=== PATIENT | female | born 1980 | race Caucasian/White ===

== ENCOUNTER → 2024-03-08 | Outpatient (CLI) | payer OTHER, SELFPAY ==
--- NOTE | 2024-03-08 13:53 | NEURO_ITS ---
NCS and/or EMG Patient Report Ordering Doctor: Santy Barton DATE OF SERVICE: 03/08/24 Charity presents with complaints of low back pain radiating into the lower limbs, mainly on the right side. She has had 2 spine surgeries. Electrodiagnostic findings: Right peroneal motor nerve demonstrates normal distal latency, amplitude and conduction velocity. Left peroneal motor nerve demonstrates normal distal latency, amplitude and conduction velocity. Tibial motor responses within normal limits bilaterally. Normal peroneal and tibial F?waves. Borderline prolonged H?reflux bilaterally. Mildly prolonged sural latency bilaterally. Needle EMG testing was performed in the lower limbs. 1+ fibrillations were noted in the right tibialis anterior, right peroneus longus and right lower lumbar paraspinals. Polyphasic motor units noted in the right tibialis anterior and right peroneus longus. Electrodiagnostic impression: This is an abnormal study. 1. Electrodiagnostic findings are consistent with acute on chronic right L5 radiculopathy. 2 there is no electrodiagnostic evidence for peripheral polyneuropathy. Multi Select Codes Neurology Neurology Interp Codes: 02901-55 Musc test done w/n test comp (interp) (2) and 9 5911-26 Nrv cndj test 9-10 studies (interp)
== END | disposition home or self-care (01) ==
LOC: PSN 12:06
PROVIDERS: PCP Family Medicine; Referring Provider Family Medicine; Visit Provider Family Medicine
DX: M51.26 Other intervertebral disc displacement, lumbar region (principal); S39.012A Strain of muscle, fascia and tendon of lower back, initial encounter
CPT/HCPCS: 95886; 95911

== ENCOUNTER 2024-04-07 12:00 | Outpatient (RCR) | payer OTHER, BC, SELFPAY ==
--- NOTE | 2023-09-15 11:42 | HP.PTEVAL_ITS ---
Patient's Visit Information Visit Information Visit Information: CHARITO RATLIFF is a 43 year old F referred to Physical Therapy by Dr. 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 Date of Evaluation: 09/14/23 Physical Therapist: Moris Serrano DPT Visit Plan Frequency: 2x /Week Duration: 4 Weeks Plan: AQUATIC THERAPY: Address core/TA contraction, posture, lumbar ROM, walking, hip strengthening LAND THERAPY: Pt to transition to land therapy once reached maximum potential with aquatic therapy and demonstrates improved pain with motion. From there, address walking with LRD, hip strengthening, neutral spine strengthening/endurance, and STM to address any scar tissue adhesions, pain, or limitations in ROM. Subjective Subjective: Pt presents to PT s/p two back surgeries. First was in October 2022 and second was 08/17/23 as a WC case, following a back injury that occured while working. 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 Pt was helping lift an adult at work out of his wheelchair and heard a pop in her back in spring. Following the second surgery, pt reports an improvement in N/T in LLE and less sensitivity in her legs. Pt presents with rollator and back brace upon PT evaluation. Pt reports some feeling of fullness in low back and R leg. Pt has stairs to get up to her second floor bathroom and makes sure someone is supervising her in case she loses her balance. Pt denies any falls. Pt has lifting restrictions up to 10#, expected to increase at next f/u. Currently, lifting a gallon of milk or her granddaughter feels like a pulling in her low back. Surgeon set tentative RTW date in November, but pt unsure if this will be a realistic timeline. Pt has been walking around her house without rollator, is able to do laundry, stand for approx 10 min while doing dishes, and get herself dressed. Pt reports pain gets up to 8/10 at worst and best 5/10, improved with gentle movement and pain medications. Goals: be able to clean house (vacuum, mop...), be able to stand for 1+ hours, and reduce pain. Pt denies fever, incontinence, or fear of water and is appropriate for aquatic therapy. Pain Back: Pain Intensity (Out of 10): 7 Pain Intensity Range: 5 and 8 Objective Objective: ROM: lumbar ROM limited in all direction, standing flexion and R LSB most painful with wearing brace, seated without brace felt better MMT: L - hip flex 3/5, knee ext 3+/5, knee flex 3/5, ankle DF 4/5, ankle PF 4/5 R - hip flex 3/5, knee ext 3+/5, knee flex 3/5, ankle DF 3+/5, ankle PF 3+/5 PALPATION: some tenderness near incision but healing well, tightness in R HS, tightness and muscle guarding in low back GAIT: slow, increased trunk stiffness and using rollator for UE support OBSERVATIONS: Pt frequently clenched jaw during lumbar ROM d/t apprehension with movement, good weight shifting with UE support STAIRS: need to test, pt performing at home with close supervision, gets tired easily Pt would like to be back to work by November, PT and SPT educated pt on slowly introducing ROM and stretching within pain-free range and energy conservation techniques to help with pain, especially at the end of the day. Pt apprehensive to move in fear of more damage or pain, but has been attempting to improve level of activity and independence with ADLs. Has difficulty maintaining one position for too long, both seated and standing and feels better with walking or swaying. Moris Serrano DPT had direct supervision with SPT for this evaluation Balance/Special Test Scores Oswestry Low Back Score: 31 Goals Goal 1:: STG: Pt will demonstrate symmetrical LE strength with <5/10 pain at worst Goal Time Frame: 4-6 Weeks Goal 2:: STG: Pt will be able to stand for 30+ minutes with <6/10 ppain Goal Time Frame: 4-6 Weeks Goal 3:: LTG: Pt will demonstrate <4/10 pain and reciprocal pattern when navigating stairs at home Goal Time Frame: 8-12 Weeks Goal 4:: LTG: Pt will be able to resume sexual activity with <3/10 pain Goal Time Frame: 8-12 Weeks Goal 5:: LTG: Pt will be able to tolerate cleaning her house with <4/10 pain and no AD Goal Time Frame: 8-12 Weeks Goal 6:: LTG: Pt will demonstrate the ability to amb. 300+ feet with no AD and improved gait mechanics Goal Time Frame: 8-12 Weeks Rehabilitation Potential Physical Therapy Diagnosis: Pt presents to PT with back pain, weakness in back/hips/LEs, and abnormal gait d/t back surgery on 08/17/23. Pt would benefit from skilled PT services, beginning with aquatic and ending with land, to address strength, ROM, and tolerance to ADLs including caring for her son, navigating within her home, and RTW. Rehabilitation Potential: Fair Anticipated Interventions Patient/Client Instruction: Educate patient on: Plan of Care and Benefits of Fitness Program For the Purpose of:: To decrease pain, To increase ROM, To improve muscle performance and motor function, To improve ability to perform ADL's, To increase tolerance to activity/condition/position, To improve performance and independence with ADL's, To decrease level of supervision to perform tasks, To improve ability of physical actions for home/community/work/leisure, To improve gait and locomotor functions, To improve health of tissue, To decrease soft tissue restriction, To increase flexibility/ROM, To improve endurance, To improve balance, To assume or resume ADL's, To reduce risk of recurrence, To improve safety, To improve health and function, To improve self management, To improve ability to perform tasks related to life management and To improve tolerance to ADL's Therapeutic Exercise to Include: Strength training, Endurance training, Balance training, Body mechanics, Postural training, Flexibilty training, Gait and locomotor training, Neuromotor development, Biofeedback, In an aquatic setting, Passive ROM, Active ROM and Victorina Exercises For the Purpose of:: To decrease pain, To increase ROM, To improve muscle performance and motor function, To improve ability to perform ADL's, To improve ability of physical actions for home/community/work/leisure, To improve gait and locomotor functions, To decrease soft tissue restriction, To increase flexibility/ROM, To improve endurance, To improve balance, To assume or resume ADL's, To improve safety, To improve health and function, To improve self management, To improve ability to perform tasks related to life management and To improve tolerance to ADL's Functional Training to Include: ADL Training, Functional work training and Gait training For the Purpose of:: To improve ability of physical actions for home/community/work/leisure, To improve gait and locomotor functions, To assume or resume ADL's, To reduce risk of recurrence, To improve health and function, To prevent re-injury, To improve ability to perform tasks related to life management and To improve tolerance to ADL's Manual Therapy Techniques to Include: Scar massage, Mobilization, Passive ROM and Soft tissue mobilization For the Purpose of:: To decrease pain, To decrease swelling/inflammation, To improve health of tissue, To decrease soft tissue restriction, To increase flexibility/ROM, To improve ability to perform tasks related to life management and To improve tolerance to ADL's Assistive Devices: Cane For the Purpose of:: To improve endurance, To improve balance, To improve safety with gait, To improve safety, To improve self management and To improve ability to perform tasks related to life management TENS: Yes Cryotherapy (ice pack, ice massage): Yes Thermo therapy (hot pack): Yes Ultrasound (thermal/non thermal): Yes For the Purpose of:: To decrease pain, To decrease swelling/inflammation, To improve nutrient delivery to tissue, To improve health of tissue, To decrease soft tissue restriction and To improve ability to perform tasks related to life management Text: Thank you for the opportunity to evaluate your patient. For Medicare and Medicare HMO plans, please review the plan of care and approve it. It will need to be FAXED BACK to us at [phone] for Medicare purposes. For Medicare only, by signing this I certify the plan of care. Please let me know if there are questions or concerns regarding this plan of care. Physician Signature: D ate:
--- NOTE | 2023-10-25 09:29 | HP.PTREVAL ---
Re-Evaluation Intro: Dr. Santy Barton MD, It has been my pleasure to treat CHARITO RATLIFF over the last 8 visits for Intervertebral disc displacement & strain of low back (s/p discectomy). Please see the progress note below for an update on the physical therapy plan of care! Subjective Subjective: Pt saw the surgeon on 10/10 and has another follow up on 12/12. Pt and the surgeon agree that aquatic therapy should continue, reporting that LE strength has improved. Pt is able to stand for 10 minutes before needing a break. Vacuuming and cleaning her house is fatiguing. Objective Objective/Function: ROM: BLE WNL, mild tightness L HS, still wearing brace to help protect back, did not test full ROM d/t sx precautions and pain MMT: L - hip flex (seated) 4+/5, knee ext 4/5, knee flex 4-/5, DF 4/5, PF 4/5 R - hip flex (seated) 3/5, knee ext 4-/5, knee flex 4-/5, DF 4/5, PF 4/5 GAIT: trunk muscle guarding, good upright posture, >200ft with rollator Pt demo's improved LE strength, tolerance to standing and walking, and posture. Pt would continue to benefit from skilled PT services to further strengthen core and LEs to help improve safety, foster healthy habits, and facilitate neuromuscular re-education of movement while addressing pain. Pt reports good benefit from aquatic therapy and she continues to be appropriate for aquatic therapy d/t pain with land ex and increased ease of movement when in the pool. Educated pt on how to begin implementing a walking program and how to appropriately increase activity as she tolerates. Plan Plan Plan: Awaiting new C9 for further PT approval. AQUATIC THERAPY: Address core/TA contraction, posture, lumbar ROM, walking, hip strengthening LAND THERAPY: Pt to transition to land therapy once reached maximum potential with aquatic therapy and demonstrates improved pain with motion. From there, address walking with LRD, hip strengthening, neutral spine strengthening/endurance, and STM to address any scar tissue adhesions, pain, or limitations in ROM. Balance/Gait/Functional tests Balance/Special Test Scores Oswestry Low Back Score: 31 Goals Goals Goal 1:: STG: Pt will demonstrate symmetrical LE strength with <5/10 pain at worst Goal Time Frame: 4-6 Weeks Goal Progress: Progressing Goal 2:: STG: Pt will be able to stand for 30+ minutes with <6/10 ppain Goal Time Frame: 4-6 Weeks Goal Progress: Progressing Goal 3:: LTG: Pt will demonstrate <4/10 pain and reciprocal pattern when navigating stairs at home Goal Time Frame: 8-12 Weeks Goal Progress: Progressing Goal 4:: LTG: Pt will be able to resume sexual activity with <3/10 pain Goal Time Frame: 8-12 Weeks Goal Progress: Progressing Goal 5:: LTG: Pt will be able to tolerate cleaning her house with <4/10 pain and no AD Goal Time Frame: 8-12 Weeks Goal Progress: Progressing Goal 6:: LTG: Pt will demonstrate the ability to amb. 300+ feet with no AD and improved gait mechanics Goal Time Frame: 8-12 Weeks Goal Progress: Progressing Anticipated Interventions Anticipated Interventions Patient/Client Instruction: Educate patient on: Plan of Care and Benefits of Fitness Program For the Purpose of:: To decrease pain, To increase ROM, To improve muscle performance and motor function, To improve ability to perform ADL's, To increase tolerance to activity/condition/position, To improve performance and independence with ADL's, To decrease level of supervision to perform tasks, To improve ability of physical actions for home/community/work/leisure, To improve gait and locomotor functions, To improve health of tissue, To decrease soft tissue restriction, To increase flexibility/ROM, To improve endurance, To improve balance, To assume or resume ADL's, To reduce risk of recurrence, To improve safety, To improve health and function, To improve self management, To improve ability to perform tasks related to life management and To improve tolerance to ADL's Therapeutic Exercise to Include: Strength training, Endurance training, Balance training, Body mechanics, Postural training, Flexibilty training, Gait and locomotor training, Neuromotor development, Biofeedback, In an aquatic setting, Passive ROM, Active ROM and Victorina Exercises For the Purpose of:: To decrease pain, To increase ROM, To improve muscle performance and motor function, To improve ability to perform ADL's, To improve ability of physical actions for home/community/work/leisure, To improve gait and locomotor functions, To decrease soft tissue restriction, To increase flexibility/ROM, To improve endurance, To improve balance, To assume or resume ADL's, To improve safety, To improve health and function, To improve self management, To improve ability to perform tasks related to life management and To improve tolerance to ADL's Functional Training to Include: ADL Training, Functional work training and Gait training For the Purpose of:: To improve ability of physical actions for home/community/work/leisure, To improve gait and locomotor functions, To assume or resume ADL's, To reduce risk of recurrence, To improve health and function, To prevent re-injury, To improve ability to perform tasks related to life management and To improve tolerance to ADL's Manual Therapy Techniques to Include: Scar massage, Mobilization, Passive ROM and Soft tissue mobilization For the Purpose of:: To decrease pain, To decrease swelling/inflammation, To improve health of tissue, To decrease soft tissue restriction, To increase flexibility/ROM, To improve ability to perform tasks related to life management and To improve tolerance to ADL's Assistive Devices: Cane For the Purpose of:: To improve endurance, To improve balance, To improve safety with gait, To improve safety, To improve self management and To improve ability to perform tasks related to life management TENS: Yes Cryotherapy (ice pack, ice massage): Yes Thermo therapy (hot pack): Yes Ultrasound (thermal/non thermal): Yes For the Purpose of:: To decrease pain, To decrease swelling/inflammation, To improve nutrient delivery to tissue, To improve health of tissue, To decrease soft tissue restriction and To improve ability to perform tasks related to life management Re-Evaluation Ending Re-evaluation ending: Please do not hesitate to contact me at [phone] by phone or if you have questions or concerns regarding this new plan of care! Sincerely, Moris Serrano DPT
--- NOTE | 2024-01-20 16:15 | HP.PTREVAL_ITS ---
Re-Evaluation Intro: Dr. Santy Barton MD, It has been my pleasure to treat CHARITO RATLIFF over the last 12 visits for Intervertebral disc displacement & strain of low back (s/p discectomy). Please see the progress note below for an update on the physical therapy plan of care! Subjective Subjective: Pt. is here today for her assessment of symptoms and progression. Pt. reports seeing physician whom she reports he was concerned about her L side. She reports some hyper sensitivity on the R LE as well. Pt. also reports a lot of R LE cramping. Pt. is no longer taking Objective Objective/Function: MMT: RLE: knee ext 9.1#, flexion 10.3#, hip: flexion 6.6#; LLE: knee Ext 17.9#, flexion 18.7#, hip flexion 19.4#. GAIT: Pt. ambulated 350' with out Ad. She did have increased lateral trunk sway, but not [place]. STAIRS: Pt. was able to complete with step to pattern with use of 1 HR on R side to ascend. Pt. continues to have increased pain in B LEs, hips and back. Pt. was able to ambulate much better today with out AD. She has decreased tempo increased rigidity with gait, but able to complete well. Pt. had not been here in a ~7 weeks. I talked to her about consistency with completing mobility/exercises to progress. Pt. reports being sick and had issues getting her. Plan Plan Plan: Cont. with POC, working on core strengthening, core stability with gait and functional mobility in aquatic setting. Add in LE strengthening and stability with stairs. Pt. is currently using TENS on own to modulate pain as well. Balance/Gait/Functional tests Balance/Special Test Scores Oswestry Low Back Score: 31 Goals Goals Goal 1:: STG: Pt will demonstrate symmetrical LE strength with <5/10 pain at worst Goal Time Frame: 4-6 Weeks Goal Progress: Progressing Goal 2:: STG: Pt will be able to stand for 30+ minutes with <6/10 pain (Pt. unable to stand and complete dishes at this point in time.) Goal Time Frame: 4-6 Weeks Goal Progress: Progressing Goal 3:: LTG: Pt will demonstrate <4/10 pain and reciprocal pattern when navigating stairs at home Goal Time Frame: 8-12 Weeks Goal Progress: Progressing Goal 4:: LTG: Pt will be able to resume sexual activity with <3/10 pain (unable to complete) Goal Time Frame: 8-12 Weeks Goal Progress: Not Progressing Goal 5:: LTG: Pt will be able to tolerate cleaning her house with <4/10 pain and no AD (pt. able to complete but will take ~2.5 hours to vacuum 3 rooms) Goal Time Frame: 8-12 Weeks Goal Progress: Progressing Goal 6:: LTG: Pt will demonstrate the ability to amb. 300+ feet with no AD and improved gait mechanics Goal Time Frame: 8-12 Weeks Goal Progress: Progressing Anticipated Interventions Anticipated Interventions Patient/Client Instruction: Educate patient on: Plan of Care and Benefits of Fitness Program For the Purpose of:: To decrease pain, To increase ROM, To improve muscle performance and motor function, To improve ability to perform ADL's, To increase tolerance to activity/condition/position, To improve performance and independence with ADL's, To decrease level of supervision to perform tasks, To improve ability of physical actions for home/community/work/leisure, To improve gait and locomotor functions, To improve health of tissue, To decrease soft tissue restriction, To increase flexibility/ROM, To improve endurance, To improve balance, To assume or resume ADL's, To reduce risk of recurrence, To improve safety, To improve health and function, To improve self management, To improve ability to perform tasks related to life management and To improve tolerance to ADL's Therapeutic Exercise to Include: Strength training, Endurance training, Balance training, Body mechanics, Postural training, Flexibilty training, Gait and locomotor training, Neuromotor development, Biofeedback, In an aquatic setting, Passive ROM, Active ROM and Victorina Exercises For the Purpose of:: To decrease pain, To increase ROM, To improve muscle performance and motor function, To improve ability to perform ADL's, To improve ability of physical actions for home/community/work/leisure, To improve gait and locomotor functions, To decrease soft tissue restriction, To increase flexibility/ROM, To improve endurance, To improve balance, To assume or resume ADL's, To improve safety, To improve health and function, To improve self management, To improve ability to perform tasks related to life management and To improve tolerance to ADL's Functional Training to Include: ADL Training, Functional work training and Gait training For the Purpose of:: To improve ability of physical actions for home/community/work/leisure, To improve gait and locomotor functions, To assume or resume ADL's, To reduce risk of recurrence, To improve health and function, To prevent re-injury, To improve ability to perform tasks related to life man agement and To improve tolerance to ADL's Manual Therapy Techniques to Include: Scar massage, Mobilization, Passive ROM and Soft tissue mobilization For the Purpose of:: To decrease pain, To decrease swelling/inflammation, To improve health of tissue, To decrease soft tissue restriction, To increase flexibility/ROM, To improve ability to perform tasks related to life management and To improve tolerance to ADL's Assistive Devices: Cane For the Purpose of:: To improve endurance, To improve balance, To improve safety with gait, To improve safety, To improve self management and To improve ability to perform tasks related to life management TENS: Yes Cryotherapy (ice pack, ice massage): Yes Thermo therapy (hot pack): Yes Ultrasound (thermal/non thermal): Yes For the Purpose of:: To decrease pain, To decrease swelling/inflammation, To improve nutrient delivery to tissue, To improve health of tissue, To decrease soft tissue restriction and To improve ability to perform tasks related to life management Re-Evaluation Ending Re-evaluation ending: Please do not hesitate to contact me at [phone] by phone or if you have questions or concerns regarding this new plan of care! Sincerely, Moris Serrano DPT
== END 2024-04-07 19:00 | disposition home or self-care (01) ==
LOC: PT 12:00
PROVIDERS: PCP Family Medicine; Referring Provider Family Medicine; Visit Provider Family Medicine
DX: M51.26 Other intervertebral disc displacement, lumbar region (principal); S39.012D Strain of muscle, fascia and tendon of lower back, subsequent encounter
CPT/HCPCS: 97113; 97162; 97530

== ENCOUNTER 2024-04-14 11:30 | Outpatient (RCR) | payer OTHER, SELFPAY ==
--- NOTE | 2024-04-20 12:01 | HP.PTREVAL_ITS ---
Re-Evaluation Intro: Dr. Santy Barton MD, It has been my pleasure to treat CHARITO RATLIFF over the last 23 visits for back pain. Please see the progress note below for an update on the physical therapy plan of care! Subjective Subjective: I spoke with Charito today. She reports overall still having issues. She is having some improvement with her mobility, but her back continues to bother her. She is to go back to surgeon next week along with seeing her [facility] physician as well. Objective Objective/Function: She is still having high levels of pain with most mobility. She has improved a bit. She does much better in aquatic setting, but still has similar issues once getting out. She is to follow back up with surgeon and [facility] physicians next week to determine best course of action. She has been compliant with her therapy and is trying hard during PT. Plan Plan Plan: Pt. to be on hold pending follow up with physicians to determine best course of action. pt. would need a new C9 to continue with PT at this point in time. Goals Goals Goal 1:: LTG: pt. to have 5/5 BLE strength with decreased LBP to less than 5/10. Goal Time Frame: 4-6 Weeks Goal Progress: Progressing Goal 2:: LTG: pt. to be able to stand for greater than 30+ min with decreased LBP less than 6/10. Goal Progress: Progressing Goal 3:: LG: pt. to be able to resume all sexual activities without increase in LBP. Goal Time Frame: 2-4 Weeks Goal Progress: Progressing Goal 4:: LTG: Pt. to be able to tolerate cleaning her house with <4/10 without AD. Goal Time Frame: 4-6 Weeks Goal Progress: Progressing Goal 5:: LTG: Pt. to demonstrate the ability to ambulate 300+ feet without use of AD. Goal Time Frame: 4-6 Weeks Goal Progress: Progressing Anticipated Interventions Anticipated Interventions Patient/Client Instruction: Educate patient on: Condition, Plan of Care, Risk Factors and Benefits of Fitness Program For the Purpose of:: To improve health and function, To foster healthy habits, To improve decision making, To facilitate caregiver knowledge, To improve self management, To prevent re-injury and To improve ability to perform tasks related to life management Therapeutic Exercise to Include: Strength training, Power training, Body mechanics, Postural training, Flexibilty training, In an aquatic setting and Dynamic Lumbar Stabilization For the Purpose of:: To decrease pain, To increase ROM, To improve nutrient del joleen to tissue, To increase oxygenation perfusion, To improve muscle performance and motor function, To improve ability to perform ADL's, To increase tolerance to activity/condition/position, To improve performance and independence with ADL's, To decrease soft tissue restriction and To increase flexibility/ROM Re-Evaluation Ending Re-evaluation ending: Please do not hesitate to contact me at [phone] by phone or if you have questions or concerns regarding this new plan of care! Sincerely, GRANT BellaT
--- NOTE | 2024-07-25 08:29 | HP.PT.NRP ---
Patient Information Patient Information: CHARITO RATLIFF was seen in my office for initial evaluation on . The following Plan of Care was established for this patient: Anticipated Interventions Patient/Client Instruction: Educate patient on: Condition, Plan of Care, Risk Factors and Benefits of Fitness Program For the Purpose of:: To improve health and function, To foster healthy habits, To improve decision making, To facilitate caregiver knowledge, To improve self management, To prevent re-injury and To improve ability to perform tasks related to life management Therapeutic Exercise to Include: Strength training, Power training, Body mechanics, Postural training, Flexibilty training, In an aquatic setting and Dynamic Lumbar Stabilization For the Purpose of:: To decrease pain, To increase ROM, To improve nutrient delivery to tissue, To increase oxygenation perfusion, To improve muscle performance and motor function, To improve ability to perform ADL's, To increase tolerance to activity/condition/position, To improve performance and independence with ADL's, To decrease soft tissue restriction and To increase flexibility/ROM Last Seen Last Seen: This patient was last seen in our office 04/14/24. Pertinent comments regarding their Physical therapy will appear below: Pt. was seen for her LBP. Pt. was put on hold at her last visit due to following up with surgeon. She has not been seen in several months and will be DC from PT at this point in time. At this point I will be discontinuing this patient from physical therapy. I would be happy to see this patient again in the future if found appropriate by the physician. Thank you! Moris Serrano DPT
== END 2024-04-14 19:00 | disposition home or self-care (01) ==
LOC: PT 11:30
PROVIDERS: PCP Family Medicine; Referring Provider Family Medicine; Visit Provider Family Medicine
DX: M51.26 Other intervertebral disc displacement, lumbar region (principal); S39.012D Strain of muscle, fascia and tendon of lower back, subsequent encounter
CPT/HCPCS: 97113